=== PATIENT | male | born 1965 | race Caucasian/White ===

== ENCOUNTER 2018-11-18 22:28 | Observation (INO) | payer MEDICARE ==
[2018-11-18 22:39] VITALS: BMI 33.3
[2018-11-18] MEDS ORDERED: ALBUTEROL SO4 2.5/IPRATROPIUM 0.5 INH SOL 3 ML VIAL.NEB. NEB ONE ×2 (23:21→23:46)
[2018-11-18] MEDS ORDERED: ACETAMINOPHEN 325 MG TABLET (FP) PO ONE (23:22)
--- NOTE | 2018-11-18 23:26 | PDOC ---
History of Present Illness - General Chief Complaint: Shortness of Breath Stated Complaint: SHORT OF BREATH Time Seen by Provider: 11/18/18 22:55 - History of Present Illness Initial Comments: 53yo M with PMH of asthma and gastritis presenting with shortness of breath and epigastric pain. Patient reports he started feeling poorly yesterday. He has taken his albuterol inhaler at home with minimal relief. Patient has never been hospitalized for his asthma and has never been intubated. He is unable to identify what are his asthma triggers. Yesterday, patient also started having a fever at home for which he took nyquil. Patient reports having cough for the past two weeks productive of phlegm. Patient has had intermittent epigastric pain for the last several months for which he was told he had gastritis. Patient had an endoscopic procedure on Tuesday and did not feel abdominal pain after the procedure. His abdominal pain started again yesterday. He has taken his prescribed protonix, ranitidine, and Mi-Acid with minimal relief. Denies chest pain. Past History - Past Medical History Allergies/Adverse Reactions: Allergies Allergy/AdvReac Type Severity Reaction Status Date / Time Penicillins Allergy Verified 04/16/18 19:57 Home Medications: Ambulatory Orders NK [No Known Home Medication] 11/19/18 COPD: No - Suicide/Smoking/Psychosocial Hx Smoking History: Unknown if ever smoked Hx Alcohol Use: No Drug/Substance Use Hx: No Substance Use Type: None Review of Systems - Review of Systems Comments:: Constitutional: +fever, +chills HEENT: no throat pain, no dysphagia Cardiovascular: no chest pain, no palpitations Respiratory: +cough, +shortness of breath Gastrointestinal: +abdominal pain, no nausea Genitourinary: no dysuria, no frequency Musculoskeletal: no myalgia, no arthralgia Skin: no rash, no itching Neurologic: no headache, no dizziness *Physical Exam - Vital Signs Last Vital Signs Temp Pulse Resp BP Pulse Ox 100.4 F H 118 H 20 141/89 94 L 11/18/18 22:34 11/18/18 22:34 11/18/18 22:34 11/18/18 22:34 11/18/18 22:34 - Physical Exam Comments: General: Awake, alert, and fully oriented, in no acute distress Head: No signs of trauma Eyes: EOMI, sclera anicteric ENT: Moist mucus membranes Neck: Normal ROM, supple Lungs: Diffuse wheezes present bilaterally Cardio: Regular rhythm, S1 and S2 present Abdomen: Tender to palpation in epigastrium. Soft. No guarding, no rebound, no masses Extremities: Normal range of motion, Distal pulses present SKIN: Warm, Dry, normal turgor Neurologic: Cranial nerves II through XII grossly intact. Normal speech Moderate Sedation - Procedure Monitoring Vital Signs: Procedure Monitoring Vital Signs Temperature 100.4 F H 11/18/18 22:34 Pulse Rate 118 H 11/18/18 22:34 Respiratory Rate 20 11/18/18 22:34 Blood Pressure 141/89 11/18/18 22:34 O2 Sat by Pulse Oximetry (%) 94 L 11/18/18 22:34 ED Treatment Course - LABORATORY CBC & Chemistry Diagram: 11/19/18 00:00 11/19/18 00:00 - RADIOLOGY Radiology Studies Ordered: Category Date Time Status CHEST PA & LAT [RAD] Stat Radiology 11/18/18 23:23 Ordered Medical Decision Making - Medical Decision Making 53yo M with PMH of asthma and gastritis presenting with shortness of breath and epigastric pain. DDX including but not limited to asthma exacerbation, COPD, PNA, PE, ACS DDX including but not limited to gastritis, pancreatitis, gastroenteritis, nephrolithiasis 1000mg Ofimev, 20mg Famotidine, 3 amp duoneb EKG: rate 113, QTc 331, sinus tachycardia Patient reporting improvement in epigastric pain, now rated 2/10 11/19/18 00:38 Positive for flu Due to co-morbid asthma and higher risk of complications, will treat with tamiflu 11/19/18 01:12 Lung exam improved, however, O2 sat will decrease to 92 without supplemental oxygen Plan to admit 11/19/18 02:[address] Moreau who accepted patient for admission under Dr. Maravilla *DC/Admit/Observation/Transfer Diagnosis at time of Disposition: Influenza A Asthma exacerbation Qualifiers: Asthma severity: unspecified severity Asthma persistence: unspecified Qualified Code(s): J45.901 - Unspecified asthma with (acute) exacerbation - Discharge Dispostion Condition at time of disposition: Guarded Decision to Admit order: Yes - Referrals - Patient Instructions - Post Discharge Activity
[2018-11-18] MEDS ORDERED: FAMOTIDINE 20 MG/50 ML IVPB 20 MG/50 ML MG IVPB ONE ×2 (23:31→23:46)
[2018-11-18] MEDS ORDERED: ACETAMINOPHEN 1000 MG/100 ML VIAL (NON FORMULARY) IVPB ONE (23:31)
[2018-11-18] MEDS ORDERED: ACETAMINOPHEN INJECTION 100 ML IVPB ONE (23:46)
[2018-11-19 00:41] LABS: BASO % 0.9 % (0-2.0); HEMOGLOBIN 15.8 GM/dL (11.7-16.9); MCH 29.5 pg (25.7-33.7); MEAN CELL VOLUME 84.3 fl (80-96); MEAN PLT VOLUME 8.2 fl (7.5-11.1); MONO % 14.7 % (3.8-10.2); NEUT % 69.4 % (42.8-82.8); PLATELET COUNT 187 K/MM3 (134-434); RBC 5.34 M/mm3 (4.00-5.60); RDW 14.7 % (11.9-15.9); WHITE BLOOD COUNT 6.9 K/mm3 (4.0-10.0)
[2018-11-19 01:06] LABS: ALBUMIN 3.7 g/dl (3.4-5.0); ALK PHOS 94 U/L (45-117); ANION GAP 10 MMOL/L (8-16); BILIRUBIN,TOTAL 0.4 mg/dL (0.2-1); BLOOD UREA NITROGEN 16 mg/dL (7-18); CHLORIDE 104 mmol/L (98-107); CO2 24 mmol/L (21-32); CREATININE 0.9 mg/dL (0.55-1.3); GLUCOSE,RANDOM 118 mg/dL (74-106); LIPASE 149 U/L (73-393); POTASSIUM 3.8 mmol/L (3.5-5.1); SGOT/AST 47 U/L (15-37); SGPT/ALT 63 U/L (13-61); SODIUM 137 mmol/L (136-145); TOT PROT 7.1 g/dl (6.4-8.2)
--- NOTE | 2018-11-19 01:31 | PDOC ---
Attending Attestation - HPI HPI: 11/19/18 01:47 The patient is a 53 year old male with past medical history significant for asthma (no prior hospitalization or intubation) and gastritis presents to the emergency department with shortness of breath. The patient reports since yesterday hes been having shortness of breath, with minimal relief noted after albuterol use. The patient reports having an Endoscopy done on Tuesday, with no symptoms of gastritis, however reports the symptoms flared up yesterday. The patient reports associated symptoms of a fever. Denies chest pain. - Medical Decision Making 11/19/18 01:37 Documentation prepared by Tamela Doyle, acting as medical staff director for Ivy Quinn MD. <Tamela Doyle - Last Filed: 11/19/18 01:47> - Resident Resident Name: Whitney Slaughter - ED Attending Attestation I have performed the following: I have examined & evaluated the patient, The case was reviewed & discussed with the resident, I agree w/resident's findings & plan - Physicial Exam PE: 11/19/18 03:47 Agree with resident exam - Medical Decision Making 11/19/18 03:47 Pt has influenza and he will be admitted. <Ivy Quinn - Last Filed: 11/19/18 03:47>
[2018-11-19] MEDS ORDERED: methylPREDNISolone NA SUCC 125 MG/2 ML VIAL IVPUSH ONE (01:38)
[2018-11-19] MEDS ORDERED: ALBUTEROL SO4 0.083% IH SOL 2.5 MG/3 ML VIAL.NEB. NEB ONE ×2 (01:41)
[2018-11-19] MEDS ORDERED: methylPREDNISolone NA SUCC 125 MG/2 ML VIAL ONE (01:41)
[2018-11-19] MEDS ORDERED: OSELTAMIVIR PHOSPHATE 75 MG CAPSULE PO ONE (01:42)
[2018-11-19] MEDS ORDERED: OSELTAMIVIR PHOSPHATE 75 MG CAPSULE ONE ×2 (01:47→23:04)
--- NOTE | 2018-11-19 02:59 | PN ---
Teaching Attending Note Name of Resident: Victor M Moreau ATTENDING PHYSICIAN STATEMENT I saw and evaluated the patient. I reviewed the resident's note and discussed the case with the resident. I agree with the resident's findings and plan as documented. SUBJECTIVE: patient is a 53 year old man with PMH of asthma, penicillin allergy and gastritis presenting with shortness of breath and epigastric pain. Patient reports he started feeling poorly yesterday. He has taken his albuterol inhaler at home with minimal relief. Patient has never been hospitalized for his asthma and has never been intubated. He is unable to identify what are his asthma triggers. Yesterday, patient also started having a fever at home for which he took nyquil. Patient reports having cough for the past two weeks productive of phlegm. Patient has had intermittent epigastric pain for the last several months for which he was told he had gastritis. Patient had an endoscopic procedure on Tuesday and did not feel abdominal pain after the procedure. His abdominal pain started again yesterday. He has taken his prescribed protonix, ranitidine, and Mi-Acid with minimal relief. Denies chest pain, photophobia, dysuria or change in bowel habit. Patient did not get the flu vaccine this year. OBJECTIVE: Alert Vital Signs Period Temp Pulse Resp BP Sys/Calero Pulse Ox Last 24 Hr 98.4 F-100.4 F 78-118 17-20 119-141/78-89 92-94 HEENT: No Jaundice, eye redness or discharge, PERRLA, EOMI. Normocephalic, atraumatic. External ears are normal and hearing is grossly intact. No nasal discharge. Neck: Supple, nontender. No palpable adenopathy or thyromegaly. No JVD Chest: Good effort. Diffuse wheezing. Clear to percussion. Heart: Sinus tachycardia. No S3, rub or murmur Abdomen: Not distended, soft, nontender and no HSM. No rebound or guarding. Normal bowel sounds. Ext: Peripheral pulses intact. No leg edema. Skin: Warm and dry. No petechiae, rash or ecchymosis. Neuro: Alert. Oriented x3. CN 2-12 grossly intact. Sensation grossly intact in all four extremities and DTR are symmetric. Psych: Appropriate mood and affect. Good insight. Home Medications Medication Instructions Recorded NK [No Known Home Medication] 11/19/18 Abnormal Lab Results 11/19/18 11/19/18 11/19/18 00:00 00:00 00:00 Monocytes % 14.7 H D Random Glucose 118 H Calcium 8.0 L AST 47 H ALT 63 H Influenza A (Rapid) Positive A ASSESSMENT AND PLAN: 1. Acute Asthma Exacerbation/Influenza A - Acute asthma exacerbation likely precipitated by Influenza A infection. No acute abnormality on CXR and EKG shows sinus tachycardia with no significant ST-T wave changes. Initial troponin is negative. Being treated with Tamiflu, Duoneb, IV solumedrol 40 mg q 8 hours, PO protonix and nasal canula oxygen. 2. Obesity Counseled on the risks associated with obesity. Will provide patient all the necessary assistance, counseling and positive reinforcement to facilitate weight loss. Consult quickbooks bookkeeper. 3. DVT prophylaxis - Lovenox 40 mg SQ q 24 hours. 4. Advance directives - Full code
[2018-11-19] MEDS ORDERED: ALBUTEROL SO4 0.083% IH SOL 2.5 MG/3 ML VIAL.NEB. NEB PRN (04:10)
--- NOTE | 2018-11-19 04:22 | HP ---
CHIEF COMPLAINT: SOB PCP: HISTORY OF PRESENT ILLNESS: Patient is a primarily Burkinan-speaking 53 y/o M w/ reported PMHx asthma, gastritis, p/w worsening dyspnea, productive cough, epigastric pain, subjective fever. Home albuterol rescue inhaler failed to provide relief. Epigastric pain is chronic, however pt had endoscopy last Tuesday and pain only became worse the day prior to admission. On presentation, low grade temp to 100.4, tachy to 118. Saturating well on NC but desaturates to 92-93% off supplementary oxygen. Denies COPD history, however is a former smoker having quit 10 y/a (pack years unclear). EKG showed sinus tachycardia. CXR clear. No leukocytosis. Chemistry wnl. Flu A swab is positive. Received duonebs, albuterol, Pepcid, Ofirmev, Tamiflu, Solumedrol in ED. ER course was notable for: (1) Flu A+ (2) CXR clear (3) No leukocytosis Recent Travel: PAST MEDICAL HISTORY: As per HPI PAST SURGICAL HISTORY: Denies any PSHx Social History: Smoking: unclear pack years, quit 10 y/a Alcohol: no Drugs: no Family History: Allergies Penicillins Allergy (Verified 04/16/18 19:57) HOME MEDICATIONS: Home Medications Medication Instructions Recorded NK [No Known Home Medication] 11/19/18 REVIEW OF SYSTEMS As per HPI PHYSICAL EXAMINATION Vital Signs - 24 hr 11/18/18 11/19/18 11/19/18 22:34 01:32 01:40 Temperature 100.4 F H 98.4 F Pulse Rate 118 H Pulse Rate [ 78 Left Radial] Respiratory 20 17 Rate Blood Pressure 141/89 Blood Pressure 119/78 [Right Arm] O2 Sat by Pulse 94 L 93 L 92 L Oximetry (%) 11/19/18 04:10 Temperature Pulse Rate Pulse Rate [ Left Radial] Respiratory Rate Blood Pressure Blood Pressure [Right Arm] O2 Sat by Pulse 96 Oximetry (%) GENERAL: A&Ox3, NAD HEENT: NC/AT, PERRLA, EOMI, MMM NECK: Trachea midline, full range of motion, supple. LUNGS: diffuse wheezing HEART: RRR no m/r/g ABDOMEN: +bs, soft, NT, ND EXTREMITIES: 2+ pulses, warm, well-perfused, no edema. NEUROLOGICAL: property appraiser, motor, sensory systems w/o focal deficit PSYCH: Normal mood, normal affect. SKIN: Warm, dry, normal turgor, no rashes or lesions noted Laboratory Results - last 24 hr 11/19/18 11/19/18 11/19/18 00:00 00:00 00:00 WBC 6.9 RBC 5.34 Hgb 15.8 Hct 45.0 MCV 84.3 MCH 29.5 MCHC 35.0 RDW 14.7 Plt Count 187 D MPV 8.2 Absolute Neuts (auto) 4.8 Neutrophils % 69.4 D Lymphocytes % 12.0 D Monocytes % 14.7 H D Eosinophils % 3.0 D Basophils % 0.9 Nucleated RBC % 0 Sodium 137 Potassium 3.8 Chloride 104 Carbon Dioxide 24 Anion Gap 10 BUN 16 Creatinine 0.9 Creat Clearance w eGFR 88.96 Random Glucose 118 H Calcium 8.0 L Total Bilirubin 0.4 AST 47 H ALT 63 H Alkaline Phosphatase 94 Troponin I < 0.02 Total Protein 7.1 Albumin 3.7 Lipase 149 Influenza A (Rapid) Positive A Influenza B (Rapid) Negative ASSESSMENT/PLAN: 53 y/o M w/ reported PMHx asthma, gastritis, p/w worsening dyspnea, productive cough, epigastric pain, subjective fever, failed to improve with home albuterol , influenza swab is positive. #asthma exacerbation vs possible COPD exacerbation -bronchodilators standing and PRN -medrol 40 q8h -supplemental O2 -given smoking Hx, COPD cannot be excluded -temperature accounted for by influenza, no ABx at this time, observe and culture if fever recurs -requires medication reconciliation #influenza -flu A+ -Tamiflu 75 BID x 5 days #gastritis -PTX 40 PO #FEN -no IVF -monitor and correct electrolytes -regular diet #PPx -DVT: Lovenox sq -GI: PTX #code -full #dispo -med/surg obs Visit type - Emergency Visit Emergency Visit: Yes ED Registration Date: 11/19/18 Care time: The patient presented to the Emergency Department on the above date and was hospitalized for further evaluation of their emergent condition. - New Patient This patient is new to me today: Yes Date on this admission: 11/19/18 - Critical Care Critical Care patient: No
[2018-11-19] MEDS ORDERED: ALBUTEROL SO4 2.5/IPRATROPIUM 0.5 INH SOL 3 ML VIAL.NEB. NEB ONE ×3 (04:30→23:03)
[2018-11-19] MEDS: ALBUTEROL SO4 2.5/IPRATROPIUM 0.5 INH SOL 3 ML VIAL.NEB. NEB SCH ×5 (04:34→23:16)
[2018-11-19 06:59] LABS: BASO % 0.5 % (0-2.0); EOS % 0.1 % (0-4.5); HEMATOCRIT 43.1 % (35.4-49); HEMOGLOBIN 15.3 GM/dL (11.7-16.9); MCH 29.6 pg (25.7-33.7); MCHC 35.5 g/dl (32.0-35.9); MEAN CELL VOLUME 83.4 fl (80-96); MEAN PLT VOLUME 7.6 fl (7.5-11.1); MONO % 2.9 % (3.8-10.2); NEUT % 91.5 % (42.8-82.8); PLATELET COUNT 196 K/MM3 (134-434); RBC 5.17 M/mm3 (4.00-5.60); RDW 14.6 % (11.9-15.9); WHITE BLOOD COUNT 5.7 K/mm3 (4.0-10.0)
[2018-11-19 07:33] LABS: ANION GAP 8 MMOL/L (8-16); BLOOD UREA NITROGEN 17 mg/dL (7-18); CALCIUM 8.1 mg/dL (8.5-10.1); CHLORIDE 105 mmol/L (98-107); CO2 24 mmol/L (21-32); CREATININE 0.9 mg/dL (0.55-1.3); GLUCOSE,RANDOM 147 mg/dL (74-106); MAGNESIUM 2.5 mg/dL (1.8-2.4); PHOSPHOROUS 4.2 mg/dL (2.5-4.9); POTASSIUM 3.7 mmol/L (3.5-5.1); SODIUM 137 mmol/L (136-145)
[2018-11-19] MEDS: ENOXAPARIN NA (PORCINE) 40 MG/0.4 ML DISP.SYRIN SQ SCH (09:54)
[2018-11-19] MEDS: PANTOPRAZOLE 40 MG TABLET (FP) PO SCH (09:55)
[2018-11-19] MEDS: OSELTAMIVIR PHOSPHATE 75 MG CAPSULE PO SCH ×2 (09:55→23:16)
[2018-11-19] MEDS ORDERED: methylPREDNISolone NA SUCC 40 MG/1 ML VIAL IVPUSH SCH (10:00)
--- NOTE | 2018-11-19 11:07 | EKG ---
Test Reason : Blood Pressure : / mmHG Vent. Rate : 113 BPM Atrial Rate : 113 BPM P-R Int : 146 ms QRS Dur : 084 ms QT Int : 242 ms P-R-T Axes : 071 -20 062 degrees QTc Int : 331 ms POOR DATA QUALITY, INTERPRETATION MAY BE ADVERSELY AFFECTED SINUS TACHYCARDIA POSSIBLE LEFT ATRIAL ENLARGEMENT BORDERLINE ECG WHEN COMPARED WITH ECG OF 17-APR-2018 00:01, VENT. RATE HAS INCREASED BY 50 BPM Confirmed by MD KHADIJAH, LIZZETTE ([id number]) on 11/19/2018 11:07:19 AM Referred By: Confirmed By:LIZZETTE LUCIO MD
[2018-11-19 11:52] LABS: ANISOCYTOSIS 2+; MACROCYTOSIS 0; PLATELET ESTIMATE NORMAL; TEAR DROP CELLS 1+
[2018-11-19] MEDS ORDERED: methylPREDNISolone NA SUCC 40 MG/1 ML VIAL ONE (17:04)
--- NOTE | 2018-11-19 17:36 | PN ---
Progress Note (short form) - Note Progress Note: SUBJECTIVE: Feeling a bit better. Still has cough productive of yellow sputum. No fever/chills. OBJECTIVE: Afebrile, Hemodynamically Stable Last Vital Signs Temp Pulse Resp BP Pulse Ox 98.0 F 85 17 125/81 96 11/19/18 06:43 11/19/18 06:43 11/19/18 01:32 11/19/18 06:43 11/19/18 06:43 HEENT - Atraumatic, Normocephalic. No pharyngeal erythema/exudate Heart - S1, S2, RRR Lungs - clear to auscultation, no crackles/wheeze. Abdomen - Soft, epigastric tenderness. Bowel Sounds normal. Extremities - no edema. No calf tenderness. Laboratory Results - last 24 hr 11/19/18 11/19/18 11/19/18 00:00 00:00 00:00 WBC 6.9 RBC 5.34 Hgb 15.8 Hct 45.0 MCV 84.3 MCH 29.5 MCHC 35.0 RDW 14.7 Plt Count 187 D MPV 8.2 Absolute Neuts (auto) 4.8 Neutrophils % 69.4 D Neutrophils % (Manual) Band Neutrophils % Lymphocytes % 12.0 D Lymphocytes % (Manual) Monocytes % 14.7 H D Monocytes % (Manual) Eosinophils % 3.0 D Eosinophils % (Manual) Basophils % 0.9 Basophils % (Manual) Myelocytes % (Man) Promyelocytes % (Man) Blast Cells % (Manual) Nucleated RBC % 0 Metamyelocytes Hypochromia Platelet Estimate Polychromasia Poikilocytosis Anisocytosis Microcytosis Macrocytosis Spherocytes Tear Drop Cells Sodium 137 Potassium 3.8 Chloride 104 Carbon Dioxide 24 Anion Gap 10 BUN 16 Creatinine 0.9 Creat Clearance w eGFR 88.96 Random Glucose 118 H Calcium 8.0 L Phosphorus Magnesium Total Bilirubin 0.4 AST 47 H ALT 63 H Alkaline Phosphatase 94 Troponin I < 0.02 Total Protein 7.1 Albumin 3.7 Lipase 149 Influenza A (Rapid) Positive A Influenza B (Rapid) Negative 11/19/18 11/19/18 06:30 06:30 WBC 5.7 RBC 5.17 Hgb 15.3 Hct 43.1 MCV 83.4 MCH 29.6 MCHC 35.5 RDW 14.6 Plt Count 196 MPV 7.6 Absolute Neuts (auto) 5.2 Neutrophils % 91.5 H D Neutrophils % (Manual) 90.9 H Band Neutrophils % 3.0 Lymphocytes % 5.0 L D Lymphocytes % (Manual) 1.0 L Monocytes % 2.9 L D Monocytes % (Manual) 0 L Eosinophils % 0.1 D Eosinophils % (Manual) 0.0 Basophils % 0.5 Basophils % (Manual) 0.0 Myelocytes % (Man) 0 Promyelocytes % (Man) 0 Blast Cells % (Manual) 0 Nucleated RBC % 0 Metamyelocytes 0 Hypochromia 0 Platelet Estimate Normal Polychromasia 0 Poikilocytosis 0 Anisocytosis 2+ Microcytosis 0 Macrocytosis 0 Spherocytes 1+ Tear Drop Cells 1+ Sodium 137 Potassium 3.7 Chloride 105 Carbon Dioxide 24 Anion Gap 8 BUN 17 Creatinine 0.9 Creat Clearance w eGFR 88.96 Random Glucose 147 H Calcium 8.1 L Phosphorus 4.2 Magnesium 2.5 H Total Bilirubin AST ALT Alkaline Phosphatase Troponin I Total Protein Albumin Lipase Influenza A (Rapid) Influenza B (Rapid) Current Medications Generic Name Dose Route Start Last Admin Trade Name Freq PRN Reason Stop Dose Admin Albuterol Sulfate 1 amp 11/19/18 04:10 Ventolin 0.083% Nebulizer Soln - NEB Q4H PRN SHORT OF BREATH/WHEEZING Albuterol/Ipratropium 1 amp 11/19/18 04:30 11/19/18 15:43 Duoneb - NEB 1 amp RQ4H BRYANT Administration Enoxaparin Sodium 40 mg 11/19/18 10:00 11/19/18 09:54 Lovenox - SQ 40 mg DAILY BRYANT Administration Methylprednisolone Sodium Succinate 40 mg 11/19/18 10:00 11/19/18 09:55 Solu-Medrol - IVPUSH 40 mg Q8H-IV BRYANT Administration Oseltamivir Phosphate 75 mg 11/19/18 10:00 11/19/18 09:55 Tamiflu - PO 11/24/18 09:59 75 mg BID BRYANT Administration Pantoprazole Sodium 40 mg 11/19/18 10:00 11/19/18 09:55 Protonix - PO 40 mg DAILY BRYANT Administration Home Medications Medication Instructions Recorded NK [No Known Home Medication] 11/19/18 ASSESSMENT/PLAN 53 year old Male with history of Asthma, Gastritis, former smoker, presented with worsening dyspnea, cough, productive of yellow sputum, subjective fevers, failed therapy with his home albuterol inhaler. He also complains of epigastric pain for which he recently had an out-patient EGD, result unknown. In the ED, Temperature recorded 100.4, HR 118 1. Acute Asthma Exacerbation and Sepsis secondary to Influenza HR 114, T 100.4 on presentation Influenza A positive CXR - no acute cardiopulmonary findings. Continue Bronchodilators, Solumedrol, Tamiflu Currently afebrile, Hemodynamically Stable. Former smoker, no history of COPD - recommend outpatient Pulm referral for PFTs. 2. History of Gastritis - Continue Protonix DVT Px - Lovenox SQ
[2018-11-19] MEDS: predniSONE 20 MG TABLET (UD) PO SCH (19:06)
[2018-11-20] MEDS: ALBUTEROL SO4 2.5/IPRATROPIUM 0.5 INH SOL 3 ML VIAL.NEB. NEB SCH ×4 (01:53→12:02)
[2018-11-20] MEDS ORDERED: ALBUTEROL SO4 2.5/IPRATROPIUM 0.5 INH SOL 3 ML VIAL.NEB. NEB ONE (04:19)
[2018-11-20 06:01] LABS: ALBUMIN 3.3 g/dl (3.4-5.0); ALK PHOS 87 U/L (45-117); ANION GAP 5 MMOL/L (8-16); BILIRUBIN,TOTAL 0.3 mg/dL (0.2-1); BLOOD UREA NITROGEN 20 mg/dL (7-18); CALCIUM 8.4 mg/dL (8.5-10.1); CHLORIDE 108 mmol/L (98-107); CO2 27 mmol/L (21-32); CREATININE 0.8 mg/dL (0.55-1.3); GLUCOSE,RANDOM 137 mg/dL (74-106); POTASSIUM 4.4 mmol/L (3.5-5.1); SGOT/AST 44 U/L (15-37); SGPT/ALT 62 U/L (13-61); SODIUM 139 mmol/L (136-145); TOT PROT 6.7 g/dl (6.4-8.2)
[2018-11-20 08:38] VITALS: BP 143/80; PULSE 94; TEMP 98.1
[2018-11-20] MEDS: predniSONE 20 MG TABLET (UD) PO SCH (09:31)
[2018-11-20] MEDS: ENOXAPARIN NA (PORCINE) 40 MG/0.4 ML DISP.SYRIN SQ SCH (09:31)
[2018-11-20] MEDS: PANTOPRAZOLE 40 MG TABLET (FP) PO SCH (09:31)
[2018-11-20] MEDS: OSELTAMIVIR PHOSPHATE 75 MG CAPSULE PO SCH (09:31)
[2018-11-20] MEDS ORDERED: ALBUTEROL SO4 0.083% IH SOL 2.5 MG/3 ML VIAL.NEB. NEB ONE (10:24)
--- NOTE | 2018-11-20 12:05 | DS ---
Physical Exam: SUBJECTIVE: Patient seen and examined at bedside in the ED. No acute complaints , respiratory or otherwise. OBJECTIVE: Vital Signs Period Temp Pulse Resp BP Sys/Calero Pulse Ox Last 24 Hr 98.1 F 92-94 16 143/80 96-98 PHYSICAL EXAM GENERAL: A&Ox3, NAD HEENT: NC/AT, PERRLA, EOMI, MMM NECK: Trachea midline, full range of motion, supple. LUNGS: mild wheezing greatly improved vs prior encounter HEART: RRR no m/r/g ABDOMEN: +bs, soft, NT, ND EXTREMITIES: 2+ pulses, warm, well-perfused, no edema. NEUROLOGICAL: paunch trimmer, motor, sensory systems w/o focal deficit PSYCH: Normal mood, normal affect. SKIN: Warm, dry, normal turgor, no rashes or lesions noted LABS Laboratory Results - last 24 hr 11/19/18 11/20/18 06:30 05:10 Neutrophils % (Manual) 90.9 H Band Neutrophils % 3.0 Lymphocytes % (Manual) 1.0 L Monocytes % (Manual) 0 L Eosinophils % (Manual) 0.0 Basophils % (Manual) 0.0 Myelocytes % (Man) 0 Promyelocytes % (Man) 0 Blast Cells % (Manual) 0 Metamyelocytes 0 Hypochromia 0 Platelet Estimate Normal Polychromasia 0 Poikilocytosis 0 Anisocytosis 2+ Microcytosis 0 Macrocytosis 0 Spherocytes 1+ Tear Drop Cells 1+ Sodium 139 Potassium 4.4 Chloride 108 H Carbon Dioxide 27 Anion Gap 5 L BUN 20 H Creatinine 0.8 Creat Clearance w eGFR 101.92 Random Glucose 137 H Calcium 8.4 L Total Bilirubin 0.3 AST 44 H ALT 62 H Alkaline Phosphatase 87 Total Protein 6.7 Albumin 3.3 L HOSPITAL COURSE: Date of Admission:11/19/18 Patient is a primarily Belarusian-speaking 53 y/o M w/ reported PMHx asthma, gastritis s/p recent endoscopy with unknown result, p/w worsening dyspnea, productive cough, epigastric pain, subjective fever. Low grade fever without elevated WBC and desaturating to low 90s in ED on presentation without supplementary oxygen. Influenza A swab was positive. No acute findings on CXR. Was treated with bronchodilators, steroids, Tamiflu, and supplemental oxygen and greatly improved. Also noted to have mild LFT elevation. Patient was discharged with bronchodilators, to complete steroids and Tamiflu, and referred for outpatient follow up with primary care and pulmonology. Date of Discharge: 11/20/18 Minutes to complete discharge: 40 Discharge Summary Reason For Visit: EXACERBATION OF ASTHMA Current Active Problems Asthma exacerbation (Acute) Influenza A (Acute) Condition: Stable - Instructions Diet, Activity, Other Instructions: You were hospitalized for the flu, which additionally caused an exacerbation of your asthma. You were treated with medication to open your airway, relieve airway inflammation, and control the flu. You have been prescribed and inhaler and a spacer device to use if you feel short of breath. You have been prescribed a short course of steroids to take once per day until the prescription is completed. You have been prescribed a short course of Tamiflu to take twice per day until the prescription is completed. These prescriptions have been sent to your pharmacy. You have been referred for follow up primary medical care to look at your liver function and to pulmonology (the lung doctor ) for better control of your lung disease. Please follow up with these providers within one week of discharge. If you develop worsening shortness of breath, chest pain, fever, chills, or any other new or concerning symptoms, please return to the Emergency Department. Referrals: [facility] [place] [facility] [place] [Provider Group] Alex Sánchez MD, MD [Staff Physician] - Disposition: HOME - Home Medications Comprehensive Discharge Medication List: Ambulatory Orders Albuterol 2.5/Ipratropium 0.5 [Duoneb -] 1 neb QID PRN #1 vial.neb. 11/20/18 Inhaler, Assist Devices [Space Chamber Plus] 1 each QID PRN #1 spacer Oseltamivir Phosphate [Tamiflu -] 75 mg PO BID #6 capsule 11/20/18 predniSONE [Deltasone -] 40 mg PO DAILY #3 tablet 11/20/18 This patient is new to me today: No Emergency Visit: Yes ED Registration Date: 11/19/18 Care time: The patient presented to the Emergency Department on the above date and was hospitalized for further evaluation of their emergent condition. Critical Care patient: No - Discharge Referral Referred to [facility] No
--- NOTE | 2018-11-20 15:40 | PN ---
Teaching Attending Note Name of Resident: Victor M Moreau ATTENDING PHYSICIAN STATEMENT I saw and evaluated the patient. I reviewed the resident's note and discussed the case with the resident. I agree with the resident's findings and plan as documented. SUBJECTIVE: Feeling much improved. No fever/chills. OBJECTIVE: Afebrile, Hemodynamically Stable Last Vital Signs Temp Pulse Resp BP Pulse Ox 98.1 F 94 H 16 143/80 96 11/20/18 08:37 11/20/18 08:37 11/20/18 08:37 11/20/18 08:37 11/20/18 08:37 HEENT - Atraumatic, Normocephalic. No pharyngeal erythema/exudate Heart - S1, S2, RRR Lungs - clear to auscultation, no crackles/wheeze. Abdomen - Soft, epigastric tenderness. Bowel Sounds normal. Extremities - no edema. No calf tenderness. Laboratory Results - last 24 hr 11/20/18 05:10 Sodium 139 Potassium 4.4 Chloride 108 H Carbon Dioxide 27 Anion Gap 5 L BUN 20 H Creatinine 0.8 Creat Clearance w eGFR 101.92 Random Glucose 137 H Calcium 8.4 L Total Bilirubin 0.3 AST 44 H ALT 62 H Alkaline Phosphatase 87 Total Protein 6.7 Albumin 3.3 L Discharge Medications Medication Instructions Recorded Albuterol 2.5/Ipratropium 0.5 1 neb IH QID PRN #1 vial.neb. 11/20/18 [Duoneb -] Inhaler, Assist Devices [Space 1 each MC QID PRN #1 spacer 11/20/18 Chamber Plus] Oseltamivir Phosphate [Tamiflu -] 75 mg PO BID #6 capsule 11/20/18 predniSONE [Deltasone -] 40 mg PO DAILY #3 tablet 11/20/18 ASSESSMENT/PLAN 53 year old Male with history of Asthma, Gastritis, former smoker, presented with worsening dyspnea, cough, productive of yellow sputum, subjective fevers, failed therapy with his home albuterol inhaler. He also complains of epigastric pain for which he recently had an out-patient EGD, result unknown. In the ED, Temperature recorded 100.4, HR 118 1. Acute Asthma Exacerbation and Sepsis secondary to Influenza HR 114, T 100.4 on presentation, now afebrile and hemodynamically stable saturating 96% on RA Influenza A positive CXR - no acute cardiopulmonary findings. Continue Bronchodilators, Prednisone and Tamiflu to complete 5 day course. Currently medically stable for discharge. Former smoker, no history of COPD - recommend outpatient Pulm referral for PFTs. 2. History of Gastritis - Continue Protonix 3. Mild elevation in LFTs - asymptomatic - for outpatient PCP follow up for repeat labs and further work-up including hepatitis serology and abdominal imaging if still elevated.
== END 2018-11-20 12:15 | disposition home or self-care (01) ==
LOC: JER 22:28 → INTOOBSV 11-19 02:29 → JERBED 11-19 02:29
PROVIDERS: ADMIT Internal Medicine
PROC: 3E0333Z Introduction of Anti-inflammatory into Peripheral Vein, Percutaneous Approach (ICD-10-PCS; principal; 2018-11-19)
PROC: 3E033NZ Introduction of Analgesics, Hypnotics, Sedatives into Peripheral Vein, Percutaneous Approach (ICD-10-PCS; 2018-11-19)
PROC: 3E013GC Introduction of Other Therapeutic Substance into Subcutaneous Tissue, Percutaneous Approach (ICD-10-PCS; 2018-11-19)
PROC: 3E0F7GC Introduction of Other Therapeutic Substance into Respiratory Tract, Via Natural or Artificial Opening (ICD-10-PCS; 2018-11-19)
DX: J10.1 Influenza due to other identified influenza virus with other respiratory manifestations (principal); J45.901 Unspecified asthma with (acute) exacerbation; E66.9 Obesity, unspecified; K29.70 Gastritis, unspecified, without bleeding; Z68.33 Body mass index [BMI] 33.0-33.9, adult; Z88.0 Allergy status to penicillin
CPT/HCPCS: 36415; 71046-TC-FY; 80048; 80053; 83690; 83735; 84100; 84484; 85025; 87804; 93005; 93010; 94640; 96372; 96374; 96375; 99285-25; G0378; J0131

== ENCOUNTER 2019-03-02 00:45 | Emergency (ER) | payer SELFPAY ==
[2019-03-02 01:01] VITALS: TEMP 97.6; BMI 33.2
[2019-03-02] MEDS ORDERED: PANTOPRAZOLE SODIUM 40 MG in SODIUM CHLORIDE 100 ML IVPB ONE (01:35)
[2019-03-02] MEDS ORDERED: MAG HYDROX/AL HYDROX/SIMETH 30 ML UNIT-DOSE CUP PO ONE (01:35)
[2019-03-02] MEDS ORDERED: methylPREDNISolone NA SUCC 125 MG/2 ML VIAL IVPB ONE (01:35)
[2019-03-02] MEDS ORDERED: ONDANSETRON 4 MG/2 ML VIAL IVPB ONE (01:35)
--- NOTE | 2019-03-02 01:44 | PDOC ---
History of Present Illness - General Chief Complaint: Pain, Acute Stated Complaint: ABD PAIN Time Seen by Provider: 03/02/19 01:29 - History of Present Illness Initial Comments: 03/02/19 01:40 53 M with h/o gastritis/GERD, asthma/COPD presenting to ED with 4 days of SOB, epigastric pain, nausea, and vomiting. Pt states that all his symptoms began at once. He endorses SOB with cough productive of yellow phlegm. Denies F/C. Denies chest pain. Denies leg swelling. Pt also endorses epigastric pain associated with nausea and vomiting. Denies any bloody vomit. No diarrhea/ constipation. Pt states that his abdominal pain is the same pain he had years ago when he was diagnosed with gastritis. He has been taking zantac with no relief of his symptoms. Past History - Past Medical History Allergies/Adverse Reactions: Allergies Allergy/AdvReac Type Severity Reaction Status Date / Time Penicillins Allergy Verified 03/02/19 00:59 Home Medications: Ambulatory Orders Albuterol 2.5/Ipratropium 0.5 [Duoneb -] 1 neb IH QID PRN #1 vial.neb. 11/20/18 Inhaler, Assist Devices [Space Chamber Plus] 1 each MC QID PRN #1 spacer predniSONE [Deltasone -] 40 mg PO DAILY #3 tablet 11/20/18 Albuterol Sulfate Inhaler - [Ventolin HFA Inhaler -] 1 - 2 inh PO Q4H #1 inhaler 03/02/19 Prednisone [Prednisone 50 MG TABLETS] 50 mg PO DAILY #4 tablet 03/02/19 Asthma: Yes COPD: No - Suicide/Smoking/Psychosocial Hx Smoking History: Former smoker Have you smoked in the past 12 months: No Information on smoking cessation initiated: No Hx Alcohol Use: No Drug/Substance Use Hx: No Substance Use Type: None Review of Systems - Review of Systems Comments:: 03/02/19 01:42 "GENERAL/CONSTITUTIONAL: No fever or chills. No weakness. HEAD, EYES, EARS, NOSE AND THROAT: No change in vision. No ear pain or discharge. No sore throat. CARDIOVASCULAR: No chest pain, + shortness of breath, no loss of consciousness RESPIRATORY: No cough, wheezing, or hemoptysis. GASTROINTESTINAL: + epigastric pain + nausea, + vomiting, no diarrhea or constipation. GENITOURINARY: No dysuria, frequency, or change in urination. MUSCULOSKELETAL: No joint or muscle swelling or pain. No neck or back pain. SKIN: No rash NEUROLOGIC: No vertigo, no change in strength/sensation. ENDOCRINE: No increased thirst. No abnormal weight change. HEMATOLOGIC/LYMPHATIC: No anemia, easy bleeding, or history of blood clots. ALLERGIC/IMMUNOLOGIC: No hives or skin allergy. *Physical Exam - Vital Signs Last Vital Signs Temp Pulse Resp BP Pulse Ox 97.6 F 85 20 160/92 96 03/02/19 00:59 03/02/19 00:59 03/02/19 00:59 03/02/19 00:59 03/02/19 00:59 - Physical Exam Comments: 03/02/19 01:42 "GENERAL: Awake, alert, and fully oriented, in no acute distress. HEAD: No signs of trauma EYES: PERRLA, EOMI, sclera anicteric, conjunctiva clear ENT: Auricles normal inspection, hearing grossly normal, nares patent, oropharynx clear without exudates. Moist mucosa NECK: Nontender, no stepoffs, Normal ROM, supple, no lymphadenopathy, JVD, or masses LUNGS: + bilateral expiratory wheezing, no crackles HEART: Regular rate and rhythm, normal S1 and S2, no murmurs, rubs or gallops ABDOMEN: + epigastric TTP + LLQ TTP, negative madrigal's, normoactive bowel sounds. No guarding, no rebound. No masses EXTREMITIES: Normal range of motion, no edema. No clubbing or cyanosis. No cords, erythema, or tenderness NEUROLOGICAL: Cranial nerves II through XII intact. 5/5 strength and sensation in all extremities, Normal speech, normal gait, normal cerebellar function SKIN: Warm, Dry, normal turgor, no rashes or lesions noted. Heart Score/ECG Review - History History: Slightly suspicious - Electrocardiogram EKG: Non specific repolarization disturbance - Age Age: 45-65 - Risk Factors Risk Factors Heart Score: Yes Smoking History, Yes Hx Obesity Based on the list above the patient has:: 1-2 risk factors - Troponin Troponin: </= normal limit - Score Heart Score - Total: 3 - ECG Impressions Comment:: 03/02/19 03:02 NSR, no AUSTEN/STDs, TWI in lateral leads, L axis deviation, intervals wnl, rate 72 ED Treatment Course - LABORATORY CBC & Chemistry Diagram: 03/02/19 02:00 03/02/19 02:00 - RADIOLOGY Radiology Studies Ordered: Category Date Time Status CHEST PA & LAT [RAD] Stat Radiology 03/02/19 01:34 Ordered Medical Decision Making - Medical Decision Making 03/02/19 01:43 53 M with SOB and abdominal pain with N+V. Pt with wheezing on exam, suggestive of COPD/asthma flare. Pt with LLQ pain on exam, concerning for diverticulitis vs colitis. Pt also with epigastric TTP, likely 2/2 gastritis. Will evaluate for ACS with EKG and trop. Pt with no RUQ tenderness/madrigal's, no lower abdominal tenderness to necessitate CT imaging at this time. - Labs, trop, BNP - CXR - GI cocktail - Nebs, steroids - CTAP 03/02/19 03:03 Labs wnl CXR clear on my read CT pending 03/02/19 06:41 Pt reassessed - breathing now improved significantly after nebs and steroids Albuterol MDI and prednisone sent to pt's pharmacy Dispo pending CT *DC/Admit/Observation/Transfer - Prescriptions Prescriptions: Albuterol Sulfate Inhaler - [Ventolin HFA Inhaler -] 1 - 2 inh PO Q4H #1 inhaler Prednisone [Prednisone 50 MG TABLETS] 50 mg PO DAILY #4 tablet - Referrals - Patient Instructions - Post Discharge Activity
[2019-03-02] MEDS ORDERED: MAG HYDROX/AL HYDROX/SIMETH 30 ML UNIT-DOSE CUP ONE (01:53)
[2019-03-02] MEDS ORDERED: ONDANSETRON 4 MG/2 ML VIAL ONE (01:53)
[2019-03-02] MEDS ORDERED: PANTOPRAZOLE SODIUM 40 MG/100 ML BAG IVPB ONE (01:53)
[2019-03-02] MEDS ORDERED: ALBUTEROL SO4 2.5/IPRATROPIUM 0.5 INH SOL 3 ML VIAL.NEB. NEB ONE ×3 (01:53→03:42)
[2019-03-02] MEDS ORDERED: methylPREDNISolone NA SUCC 125 MG/2 ML VIAL ONE (01:54)
[2019-03-02] MEDS: ALBUTEROL SO4 2.5/IPRATROPIUM 0.5 INH SOL 3 ML VIAL.NEB. NEB SCH ×4 (02:00→03:41)
[2019-03-02 02:14] LABS: BASO % 1.1 % (0-2.0); HEMOGLOBIN 15.3 GM/dL (11.7-16.9)
[2019-03-02 02:22] LABS: EOS % 15.3 % (0-4.5); HEMATOCRIT 46.2 % (35.4-49); LYMPH % 24.8 % (8-40); MCH 27.8 pg (25.7-33.7); MCHC 33.1 g/dl (32.0-35.9); MEAN CELL VOLUME 83.9 fl (80-96); MEAN PLT VOLUME 7.6 fl (7.5-11.1); MONO % 8.9 % (3.8-10.2); NEUT % 49.9 % (42.8-82.8); PLATELET COUNT 230 K/MM3 (134-434); RDW 15.1 % (11.9-15.9); WHITE BLOOD COUNT 9.7 K/mm3 (4.0-10.0)
[2019-03-02 02:40] LABS: ALBUMIN 3.7 g/dl (3.4-5.0); ALK PHOS 112 U/L (45-117); ANION GAP 5 MMOL/L (8-16); BILIRUBIN,TOTAL 0.6 mg/dL (0.2-1); CALCIUM 8.1 mg/dL (8.5-10.1); CHLORIDE 110 mmol/L (98-107); CO2 27 mmol/L (21-32); CREATININE 0.9 mg/dL (0.55-1.3); GLUCOSE,RANDOM 107 mg/dL (74-106); LIPASE 192 U/L (73-393); POTASSIUM 3.4 mmol/L (3.5-5.1); SGOT/AST 31 U/L (15-37); SGPT/ALT 58 U/L (13-61); SODIUM 142 mmol/L (136-145); TOT PROT 6.9 g/dl (6.4-8.2)
[2019-03-02 07:16] VITALS: BP 134/88; PULSE 76
--- NOTE | 2019-03-02 07:26 | PDOC ---
*Physical Exam - Vital Signs Last Vital Signs Temp Pulse Resp BP Pulse Ox 97.6 F 76 20 134/88 97 03/02/19 00:59 03/02/19 06:20 03/02/19 06:20 03/02/19 06:20 03/02/19 06:20 ED Treatment Course - LABORATORY CBC & Chemistry Diagram: 03/02/19 02:00 03/02/19 02:00 - ADDITIONAL ORDERS Additional order review: Laboratory Results 03/02/19 02:00 Sodium 142 Potassium 3.4 L Chloride 110 H Carbon Dioxide 27 Anion Gap 5 L BUN 14.0 Creatinine 0.9 Est GFR (CKD-EPI)AfAm 114.21 Est GFR (CKD-EPI)NonAf 98.54 Random Glucose 107 H Calcium 8.1 L Total Bilirubin 0.6 AST 31 ALT 58 Alkaline Phosphatase 112 Creatine Kinase 374 H Creatine Kinase Index 1.4 CK-MB (CK-2) 5.6 H Troponin I < 0.02 B-Natriuretic Peptide 75.0 Total Protein 6.9 Albumin 3.7 Lipase 192 03/02/19 02:00 RBC 5.50 MCV 83.9 MCHC 33.1 RDW 15.1 MPV 7.6 Neutrophils % 49.9 D Lymphocytes % 24.8 D Monocytes % 8.9 D Eosinophils % 15.3 H D Basophils % 1.1 - Medications Given in the ED: ED Medications Discontinued Medications Generic Name Dose Route Start Last Admin Trade Name Kikeq PRN Reason Stop Dose Admin Al Hydroxide/Mg Hydroxide 30 ml 03/02/19 01:35 03/02/19 02:00 Mylanta Oral Suspension - PO 03/02/19 01:36 30 ml ONCE ONE Administration Albuterol/Ipratropium 1 amp 03/02/19 01:45 03/02/19 03:41 Duoneb - NEB 03/02/19 02:31 1 amp Q15M BRYANT Administration Pantoprazole Sodium 40 mg/ 100 mls @ 200 mls/hr 03/02/19 01:35 03/02/19 02:25 Sodium Chloride IVPB 03/02/19 02:04 200 mls/hr ONCE ONE Administration Methylprednisolone Sodium Succinate 125 mg 03/02/19 01:35 03/02/19 02:05 Solu-Medrol - IVPB 03/02/19 01:36 125 mg ONCE ONE Administration Ondansetron HCl 4 mg 03/02/19 01:35 03/02/19 02:10 Zofran Injection IVPB 03/02/19 01:36 4 mg ONCE ONE Administration Medical Decision Making - Medical Decision Making 03/02/19 07:24 Pt endorsed to me by Dr. Maher at 7am shift change- f/u CT, disposition. 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 Stable for DC home. *DC/Admit/Observation/Transfer Diagnosis at time of Disposition: Abdominal pain Qualifiers: Abdominal location: left lower quadrant Qualified Code(s): R10.32 - Left lower quadrant pain Asthma Qualifiers: Asthma severity: unspecified severity Asthma persistence: intermittent Asthma complication type: with acute exacerbation Qualified Code(s): J45.21 - Mild intermittent asthma with (acute) exacerbation - Discharge Dispostion Disposition: HOME Condition at time of disposition: Stable Decision to Admit order: No - Prescriptions Prescriptions: Albuterol Sulfate Inhaler - [Ventolin HFA Inhaler -] 1 - 2 inh PO Q4H #1 inhaler Prednisone [Prednisone 50 MG TABLETS] 50 mg PO DAILY #4 tablet - Referrals - Patient Instructions - Post Discharge Activity
--- NOTE | 2019-03-02 11:32 | EKG ---
Test Reason : Blood Pressure : / mmHG Vent. Rate : 072 BPM Atrial Rate : 072 BPM P-R Int : 158 ms QRS Dur : 086 ms QT Int : 388 ms P-R-T Axes : 063 -15 032 degrees QTc Int : 424 ms NORMAL SINUS RHYTHM NONSPECIFIC T WAVE ABNORMALITY ABNORMAL ECG Confirmed by CLAUDETTE RICARDO MD ([id number]) on 03/02/2019 11:32:13 AM Referred By: Confirmed By:CLAUDETTE RICARDO MD
== END 2019-03-02 08:00 | disposition home or self-care (01) ==
LOC: JER 00:45
PROC: 3E0F7GC Introduction of Other Therapeutic Substance into Respiratory Tract, Via Natural or Artificial Opening (ICD-10-PCS; principal; 2019-03-02)
PROC: 3E033GC Introduction of Other Therapeutic Substance into Peripheral Vein, Percutaneous Approach (ICD-10-PCS; 2019-03-02)
PROC: 3E0333Z Introduction of Anti-inflammatory into Peripheral Vein, Percutaneous Approach (ICD-10-PCS; 2019-03-02)
PROC: 3E033GC Introduction of Other Therapeutic Substance into Peripheral Vein, Percutaneous Approach (ICD-10-PCS; 2019-03-02)
DX: J45.21 Mild intermittent asthma with (acute) exacerbation (principal); K21.9 Gastro-esophageal reflux disease without esophagitis; K29.70 Gastritis, unspecified, without bleeding; R10.32 Left lower quadrant pain
CPT/HCPCS: 36415; 71046-TC-FY; 74177-TC; 80053; 82550; 82553; 83690; 83880; 84484; 85025; 93005; 93010; 99282-25

== ENCOUNTER 2019-03-31 03:43 | Inpatient (IN) | payer SELFPAY | END 2019-03-31 21:20 | disposition home or self-care (01) | LOC: JER 03:43 → JERBED 11:16 → J5S 15:18 ==

== ENCOUNTER 2020-11-20 00:36 | Emergency (ER) | payer SELFPAY ==
[2020-11-20 01:13] VITALS: BP 155/95; PULSE 82; TEMP 98.3; BMI 35.3
[2020-11-20] MEDS ORDERED: MAG HYDROX/AL HYDROX/SIMETH 30 ML UNIT-DOSE CUP PO ONE (02:24)
[2020-11-20] MEDS ORDERED: FAMOTIDINE 20 MG/50 ML IVPB 20 MG/50 ML MG IVPB ONE ×2 (02:24→02:39)
[2020-11-20] MEDS ORDERED: ACETAMINOPHEN 325 MG TABLET (FP) PO ONE (02:25)
[2020-11-20 02:33] LABS: BASO % 1.4 % (0-2.0); EOS % 12.2 % (0-4.5); HEMATOCRIT 46.5 % (35.4-49); HEMOGLOBIN 15.6 GM/dL (11.7-16.9); LYMPH % 25.2 % (8-40); MCH 28.5 pg (25.7-33.7); MCHC 33.6 g/dl (32.0-35.9); MEAN CELL VOLUME 84.8 fl (80-96); MEAN PLT VOLUME 8.3 fl (7.5-11.1); MONO % 9.3 % (3.8-10.2); NEUT % 51.9 % (42.8-82.8); PLATELET COUNT 232 K/MM3 (134-434); RBC 5.48 M/mm3 (4.00-5.60); RDW 15.1 % (11.9-15.9)
[2020-11-20] MEDS ORDERED: ACETAMINOPHEN 325 MG TABLET (FP) ONE (02:39)
[2020-11-20] MEDS ORDERED: MAG HYDROX/AL HYDROX/SIMETH 30 ML UNIT-DOSE CUP ONE (02:39)
[2020-11-20 02:53] LABS: CHLORIDE 110 mmol/L (98-107); POTASSIUM 3.7 mmol/L (3.5-5.1); SODIUM 144 mmol/L (136-145)
[2020-11-20 02:55] LABS: ALBUMIN 3.6 g/dl (3.4-5.0); CALCIUM 8.8 mg/dL (8.5-10.1); LIPASE 106 U/L (73-393)
[2020-11-20 02:56] LABS: ANION GAP 5 MMOL/L (8-16); BLOOD UREA NITROGEN 15.3 mg/dL (7-18); CO2 30 mmol/L (21-32); GLUCOSE,RANDOM 132 mg/dL (74-106)
[2020-11-20 02:58] LABS: SGOT/AST 48 U/L (15-37); SGPT/ALT 111 U/L (13-61)
[2020-11-20 03:00] LABS: BILIRUBIN,TOTAL 0.6 mg/dL (0.2-1); TOT PROT 6.9 g/dl (6.4-8.2)
[2020-11-20 03:01] LABS: ALK PHOS 129 U/L (45-117)
[2020-11-20 09:25] LABS: URINE APPEARANCE CLEAR; URINE BILIRUBIN NEGATIVE (NEGATIVE); URINE COLOR YELLOW; URINE GLUCOSE (UA) NEGATIVE (NEGATIVE); URINE KETONE NEGATIVE (NEGATIVE)
[2020-11-20 09:26] LABS: URINE LEUK ESTERASE NEGATIVE (NEGATIVE); URINE NITRITE NEGATIVE (NEGATIVE); URINE PROTEIN NEGATIVE (NEGATIVE); URINE UROBILINOGEN 0.2 mg/dL (0.2-1.0)
== END 2020-11-20 05:24 | disposition home or self-care (01) ==
LOC: JER 00:36
PROC: 3E033NZ Introduction of Analgesics, Hypnotics, Sedatives into Peripheral Vein, Percutaneous Approach (ICD-10-PCS; principal; 2020-11-20)
DX: R10.84 Generalized abdominal pain (principal)
CPT/HCPCS: 36415; 74176-TC; 80053; 81003; 82550; 82553; 83605; 83690; 84484; 85025; 87086; 93005; 93010; 99285-25

== ENCOUNTER 2021-03-27 20:50 | Emergency (ER) | payer SELFPAY ==
[2021-03-27 20:58] VITALS: BMI 35.1
[2021-03-27] MEDS ORDERED: ACETAMINOPHEN 1000 MG/100 ML VIAL (NON FORMULARY) IVPB ONE (22:53)
[2021-03-27] MEDS ORDERED: ONDANSETRON 4 MG/2 ML VIAL IVPUSH ONE (22:53)
[2021-03-27] MEDS ORDERED: FAMOTIDINE 20 MG/50 ML IVPB 20 MG/50 ML MG IVPB ONE ×2 (22:53→23:11)
[2021-03-27] MEDS ORDERED: SODIUM CHLORIDE 0.9% 500 ML INFUS.BAG IV ONE (22:53)
[2021-03-27] MEDS ORDERED: ACETAMINOPHEN INJECTION 100 ML IVPB ONE (23:10)
[2021-03-27] MEDS ORDERED: ONDANSETRON 4 MG/2 ML VIAL ONE (23:11)
[2021-03-27 23:36] LABS: BASO % 1.1 % (0-2.0); EOS % 0.4 % (0-4.5); HEMATOCRIT 48.5 % (35.4-49); HEMOGLOBIN 16.7 GM/dL (11.7-16.9); LYMPH % 21.3 % (8-40); MCH 28.4 pg (25.7-33.7); MCHC 34.3 g/dl (32.0-35.9); MEAN CELL VOLUME 82.6 fl (80-96); MEAN PLT VOLUME 7.6 fl (7.5-11.1); MONO % 13.5 % (3.8-10.2); NEUT % 63.7 % (42.8-82.8); PLATELET COUNT 186 10^3/uL (134-434); RBC 5.87 M/mm3 (4.00-5.60); RDW 14.8 % (11.9-15.9); WHITE BLOOD COUNT 6.9 K/mm3 (4.0-10.0)
[2021-03-27 23:58] LABS: ALBUMIN 3.6 g/dl (3.4-5.0); CALCIUM 8.3 mg/dL (8.5-10.1)
[2021-03-28 00:01] LABS: CREATININE 1.1 mg/dL (0.55-1.3)
[2021-03-28 00:03] LABS: BILIRUBIN,TOTAL 0.8 mg/dL (0.2-1); TOT PROT 7.5 g/dl (6.4-8.2)
[2021-03-28 03:02] VITALS: BP 110/75; PULSE 66; TEMP 98.5
[2021-03-28 03:51] LABS: URINE APPEARANCE CLEAR; URINE BILIRUBIN NEGATIVE (NEGATIVE); URINE COLOR YELLOW; URINE GLUCOSE (UA) NEGATIVE (NEGATIVE); URINE KETONE NEGATIVE (NEGATIVE)
[2021-03-28 03:52] LABS: URINE LEUK ESTERASE NEGATIVE (NEGATIVE); URINE NITRITE NEGATIVE (NEGATIVE); URINE PROTEIN NEGATIVE (NEGATIVE)
== END 2021-03-28 05:10 | disposition home or self-care (01) ==
LOC: JER 20:50
PROC: 3E0333Z Introduction of Anti-inflammatory into Peripheral Vein, Percutaneous Approach (ICD-10-PCS; principal; 2021-03-27)
PROC: 3E033GC Introduction of Other Therapeutic Substance into Peripheral Vein, Percutaneous Approach (ICD-10-PCS; 2021-03-27)
PROC: 3E033GC Introduction of Other Therapeutic Substance into Peripheral Vein, Percutaneous Approach (ICD-10-PCS; 2021-03-27)
DX: R10.32 Left lower quadrant pain (principal); R11.2 Nausea with vomiting, unspecified
CPT/HCPCS: 36415; 74177-TC; 80053; 81003; 83690; 85025; 87086; 99285-25; J0131; Q9967